=== PATIENT | male | born 1970 | race Caucasian/White ===

== ENCOUNTER → 2020-08-12 | Outpatient (CLI) | payer OTHER ==
[~2020-08-12] MED LIST: ASPI81TA86 PO; ATOR40TA75 PO; D200CAP PO; LISI-542 PO; METF500T13 PO; OMEP1CAP73 PO
== END ==
LOC: M LABSMTC 11:50 → EDUNIT# 12:20
PROVIDERS: ATTEND Anesthesiology
DX: Z01.812 Encounter for preprocedural laboratory examination (principal); Z20.828 Contact with and (suspected) exposure to other viral communicable diseases
CPT/HCPCS: C9803; U0003

== ENCOUNTER 2020-08-17 09:28 | Day surgery (SDC) | payer OTHER ==
[~2020-08-17] VITALS: Ht 165.1 cm; Wt 80.3 kg
[~2020-08-17 09:28] MED LIST changes: +NS 1,000 ML IV ONE
[2020-08-17] MEDS ORDERED: propofoL 200 MG/20 ML VIAL As Ordered ONE ×2 (10:48→11:34)
[2020-08-17] MEDS ORDERED: LIDOCAINE 2% 100MG/5ML SDV (FOR ANES.) As Ordered ONE (10:48)
--- NOTE | 2020-08-17 11:27 | ROOR ---
Patient Name: Du Spicer Procedure Date: 08/17/2020 11:14 AM Date of : 1970 Age: 50 Room: [facility] Gender: Male Note Status: Finalized Procedure: Upper Endoscopy + Biopsies Indications: Heartburn, Exclusion of Montoya's esophagus Providers: Sarabjit Soto MD Referring MD: BRENNEN HEIN Requesting Provider: Medicines: Monitored Anesthesia Care Complications: No immediate complications. Procedure: Pre-Anesthesia Assessment: - The heart rate, respiratory rate, oxygen saturations, blood pressure, adequacy of pulmonary ventilation, and response to care were monitored throughout the procedure. The Endoscope was introduced through the mouth, and advanced to the second part of duodenum. The upper GI endoscopy was accomplished without difficulty. The patient tolerated the procedure well. Findings: The Z-line was regular and was found 35 cm from the incisors. Multiple biopsies were obtained with cold forceps for evaluation to rule out Montoya's Esophagus randomly at the gastroesophageal junction. A small hiatal hernia was present. Mucosal changes including ringed esophagus were found in the lower third of the esophagus. Biopsies were taken with a cold forceps for histology. No other significant abnormalities were identified in a careful examination of the stomach. The exam of the duodenum was otherwise normal. Impression: - Z-line regular, 35 cm from the incisors. - Small hiatal hernia. - Esophageal mucosal changes suggestive of eosinophilic esophagitis. Biopsied. - Multiple biopsies were obtained at the gastroesophageal junction. - The examination was otherwise normal. Recommendation: - Await pathology results. - Discharge patient to home. - Follow an antireflux regimen. - Continue present medications. - Await pathology results. - Telephone GI clinic for pathology results in 1 week. - Return to referring physician. - The findings and recommendations were discussed with the patient. Sarabjit Soto MD Sarabjit Soto MD 08/17/2020 11:26:42 AM Electronically signed by Sarabjit Soto MD Number of Addenda: 0 Note Initiated On: 08/17/2020 11:14 AM Estimated Blood Loss: Estimated blood loss: none.
--- NOTE | 2020-08-17 11:39 | ROOR ---
Patient Name: Du Spicer Procedure Date: 08/17/2020 11:14 AM Date of : 1970 Age: 50 Room: [facility] Gender: Male Note Status: Finalized Procedure: Total Colonoscopy to Cecum Indications: Screening for colorectal malignant neoplasm Providers: Sarabjit Soto MD Referring MD: BRENNEN HEIN Requesting Provider: Medicines: Monitored Anesthesia Care Complications: No immediate complications. Procedure: Pre-Anesthesia Assessment: - The heart rate, respiratory rate, oxygen saturations, blood pressure, adequacy of pulmonary ventilation, and response to care were monitored throughout the procedure. The Colonoscope was introduced through the anus and advanced to the cecum, identified by appendiceal orifice and ileocecal valve. The colonoscopy was performed without difficulty. The patient tolerated the procedure well. The quality of the bowel preparation was excellent. Findings: The perianal and digital rectal examinations were normal. Non-bleeding external internal hemorrhoids were found during retroflexion. The hemorrhoids were small and Grade I (internal hemorrhoids that do not prolapse). No other significant abnormalities were identified in a careful examination of the remainder of the colon. The exam was otherwise without abnormality on direct and retroflexion views. Impression: - Non-bleeding external internal hemorrhoids. - The examination was otherwise normal on direct and retroflexion views. - No specimens collected. - The exam was otherwise normal to the cecum. Recommendation: - Patient has a contact number available for emergencies. The signs and symptoms of potential delayed complications were discussed with the patient. Return to normal activities tomorrow. Written discharge instructions were provided to the patient. - High fiber diet. - Discharge patient to home. - Continue present medications. - Repeat colonoscopy in 10 years for screening purposes. - Return to referring physician. - The findings and recommendations were discussed with the patient. Sarabjit Soto MD Sarabjit Soto MD 08/17/2020 11:39:15 AM Electronically signed by Sarabjit Soto MD Number of Addenda: 0 Note Initiated On: 08/17/2020 11:14 AM Estimated Blood Loss: Estimated blood loss: none.
[2020-08-17 12:05] VITALS: BP 125/71
== END 2020-08-17 12:21 | disposition home or self-care (01) ==
LOC: M OPP 09:28
PROVIDERS: ATTEND Internal Medicine Gastroenterology
DX: Z12.11 Encounter for screening for malignant neoplasm of colon (principal); K64.0 First degree hemorrhoids; K64.4 Residual hemorrhoidal skin tags; K44.9 Diaphragmatic hernia without obstruction or gangrene; K22.8 Other specified diseases of esophagus; R12 Heartburn; F17.210 Nicotine dependence, cigarettes, uncomplicated; Z79.82 Long term (current) use of aspirin; Z79.84 Long term (current) use of oral hypoglycemic drugs; Z79.899 Other long term (current) drug therapy